=== PATIENT | male | born 1970 | race African-American/Black ===

== ENCOUNTER 2016-02-22 14:59 | Emergency (ER) | payer OTHER ==
[2016-02-22] MEDS ORDERED: SODIUM CHLORIDE 0.9% 1,000 ML ONE (17:52)
[2016-02-22] MEDS ORDERED: KETOROLAC 30 MG/ML VIAL ONE (18:51)
[2016-02-22] MEDS ORDERED: ONDANSETRON 4 MG VIAL ONE (18:53)
[2016-02-22] MEDS ORDERED: LIDOCAINE 2% VISC 15 ML UDC ONE (19:43)
[2016-02-22] MEDS ORDERED: ALU/MAG/SIM 30 ML UDC ONE (19:43)
== END 2016-02-22 20:46 | disposition home or self-care (01) ==
LOC: ER 14:59
CPT/HCPCS: 36415; 74022; 80053; 81003; 82553; 83690; 84484; 85025; 86677; 93005; 96361; 96374; 96375